=== PATIENT | female | born 1980 | race Hispanic/Latino ===

== ENCOUNTER 2018-11-22 21:49 | Emergency (ER) | payer OTHER ==
[2018-11-22 22:15] LABS: BILIRUBIN,URINE Negative (NEGATIVE); GLUCOSE, URINE (UA) Negative (NEGATIVE); KETONES,URINE Trace mg/dL (NEGATIVE); LEUKOCYTE ESTERASE ,URINE Trace (NEGATIVE); NITRATE,URINE Negative (NEGATIVE); OCCULT BLOOD,URINE Large (NEGATIVE); PROTEIN,URINE >=1000 mg/dL (NEGATIVE); UROBILINOGEN,URINE 0.2 mg/dL (0.2-1.0)
[2018-11-22 22:16] LABS: HCG,QUAL RESULT NEGATIVE (NEGATIVE)
[2018-11-22 22:18] LABS: APPEARANCE,URINE TURBID (CLEAR); COLOR,URINE RED (YELLOW)
[2018-11-22 22:28] LABS: BACTERIA,URINE Few /HPF (None Seen); MUCUS,URINE None Seen LPF (None Seen); RBC,URINE TNTC /HPF (0-1); SQUAMOUS EPITHELIAL CELL,UR None Seen /HPF (0-2)
[2018-11-22] MEDS ORDERED: LIDOCAINE HCL-MPF 1% 2ML VIAL ONE (22:40)
[2018-11-22] MEDS ORDERED: CEFTRIAXONE SODIUM 1 GM ONE (22:41)
[2018-11-22] MEDS ORDERED: PHENAZOPYRIDINE HCL 200 MG TABLET ONE (22:41)
== END 2018-11-22 23:22 | disposition home or self-care (01) ==
LOC: EDH 21:49
DX: N30.00 Acute cystitis without hematuria (principal)
CPT/HCPCS: 81001; 81025; 96372; 99284; J0696; J3490

== ENCOUNTER 2019-09-19 13:55 | Emergency (ER) | payer SELFPAY | END 2019-09-19 15:26 | disposition home or self-care (01) | LOC: EDH 13:55 | DX: J06.9 Acute upper respiratory infection, unspecified (principal); Z98.890 Other specified postprocedural states ==